=== PATIENT | male | born 1980 | race Caucasian/White ===

== ENCOUNTER 2019-08-18 13:57 | Emergency (ER) | payer SELFPAY ==
[2019-08-18 14:02] VITALS: BP 120/76; PULSE 83; RESP 16; TEMP 36.8; O2SAT 100
--- NOTE | 2019-08-18 14:18 | ED_ITS ---
I attest that this documentation has been prepared under the direction and in the presence of Stevie Barron MD. Cory Tubbs Saqib Kena MCGREGOR 08/18/19;14:21 HPI - Dental/Oral General Chief complaint: Dental/Oral Stated complaint: Tooth Ache Source: patient Mode of arrival: ambulatory Limitations: no limitations History of Present Illness HPI Narrative: The patient, who is a nonsmoker/ unknown drinking status, presents with c/o swelling and pain to the lower lt side of his mouth/jaw x 1 week. Pt states he has hx of dental complications and plans to have dental implants placed, so he does not want to have dental work done before this. He notes having a cracked tooth near the site of swelling and pain. He reports difficulty swallowing, but denies earache or new onset of fevers. MD Complaint: tooth pain Onset (ago): week(s) (1) Duration: worsening Context: poor dental care Associated symptoms: gum swelling, pain with swallowing and other (lt jaw pain) Related Data Allergies Allergy/AdvReac Type Severity Reaction Status Date / Time latex Allergy Verified 08/18/19 14:14 Review of Systems Review of Systems: Narrative: General/Constitutional: Denies: weight loss,fever Eyes: Denies: Redness,discharge Ears/Nose/Throat: Denies: Epistaxis,ear discharge Respiratory: Denies: Hemoptysis PMFSH Comments At time of signature, agree with nursing past medical, surgical, social and family history. There is no relevant family history pertinent to the presenting complaint. Exam Narrative: Exam Narrative: General Appearance: Warm , dry, well appearing, Conjunctiva clear Ears: External ear normal, Auditory canal normal Nose: Normal nose Mouth/Throat: Normal appearing (with mild left lower jaw swelling), Normal lips, MM moist, Uvula midline (scattered dental caries and fillings,, with rare fracture) Neck: Supple, No adenopathy Respiratory: Airway patent Course Vital Signs Vital signs: Vital Signs Temperature 98.3 F 08/18/19 14:02 Pulse Rate 83 08/18/19 14:02 Respiratory Rate 16 08/18/19 14:02 Blood Pressure 120/76 08/18/19 14:02 Pulse Oximetry 100 08/18/19 14:02 Temperature 98.3 F 08/18/19 14:02 Pulse Rate 83 08/18/19 14:02 Respiratory Rate 16 08/18/19 14:02 Blood Pressure 120/76 08/18/19 14:02 Pulse Oximetry 100 08/18/19 14:02 Discharge Plan Discharge Clinical Impression: Abscess of jaw, left Patient Disposition: Home, Self-Care Condition: Stable Instructions: Antibiotic Form, Dental Abscess (ED) Prescriptions: New amoxicillin-pot clavulanate [Augmentin] 500-125 mg tablet 1 tablet PO TID Qty: 21 RF: 0 Lidocaine Viscous 2 % solution 5 ml MUCOUS MEM QID PRN (Reason: pain) Qty: 100 RF: 0 acetaminophen-codeine [Tylenol-Codeine #3] 300-30 mg tablet 1 tablet PO Q4H PRN (Reason: pain) Qty: 14 RF: 0 Interventions: Discharge Disposition Last Done: 08/18/19 14:40 Follow-up/Referrals: Art,MD Ar [Primary Care Provider] - Stand Alone Forms: Work/School Release IP Discharge Date/Time: 08/18/19 14:42 I personally performed the services described in this documentation. All medical record entries made by the scribe were at my direction and in my presence
== END 2019-08-18 14:42 | disposition home or self-care (01) ==
PROVIDERS: Emergency Provider Emergency Medicine; PCP Internal Medicine
DX: M27.2 Inflammatory conditions of jaws (principal); Q03.9 Congenital hydrocephalus, unspecified; Z98.2 Presence of cerebrospinal fluid drainage device
CPT/HCPCS: 99203; G0463